=== PATIENT | female | born 1975 | race Caucasian/White ===

== ENCOUNTER 2022-02-04 14:21 | Outpatient (REF) | payer OTHER, SELFPAY ==
--- NOTE | ~2022-02-04 | XR_ITS ---
EXAMINATION: XR CHEST CLINICAL INFORMATION: Hemoptysis. COMPARISON: None. TECHNIQUE: 2 views of the chest were obtained. FINDINGS: Normal appearance of the cardiomediastinal silhouette. No discrete focal airspace opacities, pleural effusions or pneumothorax. No acute osseous abnormalities. Thoracic spondylosis. XR/XR chest 2V IMPRESSION: No acute cardiopulmonary findings. If symptoms persist, recommend correlation with a CT chest with intravenous contrast.
== END 2022-02-04 14:22 | disposition home or self-care (01) ==
LOC: HO.XRAY 14:21
PROVIDERS: PCP Internal Medicine Medical Oncology; Visit Provider Internal Medicine Medical Oncology
DX: R04.2 Hemoptysis (principal)
CPT/HCPCS: 71046